=== PATIENT | male | born 1990 | race Caucasian/White ===

== ENCOUNTER 2019-04-07 16:38 | Emergency (ER) | payer BC ==
--- NOTE | 2019-04-07 17:01 | EDM.PDOC ---
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 He pulled over to rest and the symptoms did not seem to go away. He states he had similar symptoms to this when he had heat exhaustion in the past. 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 He reports that he has been working since around 6 AM today. He does report that he drank about 10 of the 16 ounce garibay today and he even added electrolytes to some of the garibay area he has been urinating normally. He has had no shortness of breath. He had no antecedent symptoms. In fact, he states he felt really good when he started work this morning and felt that he had had a good night's rest the night before. No nausea or vomiting. No cough. No nasal congestion. No abdominal pain. In fact, he has no pain. He rates his pain as a 0/10. There are no other associated signs or symptoms. There are no other modifying factors. Onset: Today (3:30 PM) Duration: Constant Location: Reports: Generalized Quality: Reports: Other (No pain just dizziness and malaise) Severity: Moderate Improves with: Reports: Rest Worsens with: Reports: Movement (Or activity) Context: Reports: Activity (As above) Associated Symptoms: Reports: Chest Pain, Other (Tingling in both arms and legs. ) Treatments SPUDDER: Reports: Other (see below) - Related Data Allergies Allergy/AdvReac Type Severity Reaction Status Date / Time No Known Allergies Allergy Verified 04/07/19 17:02 Home Meds: Home Meds PARoxetine [Paxil] 20 mg PO DAILY 04/07/19 [History] Past Medical History Psychiatric History: Reports: Anxiety - Past Surgical History Other Surgical History Comment: No previous surgeries. Social & Family History - Tobacco Use Smoking Status *Q: Current Every Day Smoker - Alcohol Use Alcohol Use History: No - Living Situation & Occupation Occupation: Employed (Works delivering bakery items.) ED ROS GENERAL - Review of Systems Review Of Systems: See Below Constitutional: Reports: Malaise HEENT: Reports: No Symptoms Respiratory: Reports: No Symptoms Cardiovascular: Reports: Chest Pain (As described above), Palpitations Endocrine: Reports: No Symptoms GI/Abdominal: Reports: No Symptoms : Reports: No Symptoms (Has been urinating normally today) Musculoskeletal: Reports: No Symptoms Skin: Reports: No Symptoms Neurological: Reports: Dizziness, Weakness ED EXAM, GENERAL - Physical Exam Exam: See Below Exam Limited By: No Limitations General Appearance: Alert, WD/WN, Mild Distress, Other (But seems in no real distress at this point.) Eye Exam: Bilateral Eye: EOMI, Normal Inspection, PERRL Ears: Normal External Exam Ear Exam: Bilateral Ear: Auricle Normal Nose: Normal Inspection, Normal Mucosa, No Blood Throat/Mouth: Normal Voice, No Airway Compromise, Other (Somewhat dry mucous membranes) Head: Atraumatic, Normocephalic Neck: Normal Inspection, Supple, Non-Tender, Full Range of Motion Respiratory/Chest: No Respiratory Distress, Lungs Clear, Normal Breath Sounds, No Accessory Muscle Use, Chest Non-Tender Cardiovascular: Normal Peripheral Pulses, Regular Rate, Rhythm, No JVD Peripheral Pulses: 2+: Radial (L), Radial (R), Dorsalis Pedis (L), Dorsalis Pedis (R) GI/Abdominal: Normal Bowel Sounds, Soft, Non-Tender, No Mass Back Exam: Normal Inspection Extremities: Normal Inspection, Normal Range of Motion, Non-Tender, Normal Capillary Refill, No Pedal Edema Neurological: Alert, Oriented, CN II-XII Intact, Normal Cognition, No Motor/ Sensory Deficits, Other (No drift. No dysmetria.) Skin Exam: Warm, Dry, Intact, Normal Color, No Rash EKG INTERPRETATION EKG Date: 04/07/19 Time: 17:05 Rhythm: NSR Rate (Beats/Min): 82 Marlette: LAD-Left Marlette Deviation (Borderline) P-Wave: Present QRS: Normal ST-T: Normal QT: Normal Comparison: NA - No Prior EKG Course - Vital Signs Last Recorded V/S: Last Vital Signs Temp 36.8 C 04/07/19 18:51 Pulse 82 04/07/19 18:51 Resp 17 04/07/19 18:51 BP 126/74 04/07/19 18:51 Pulse Ox 97 04/07/19 18:51 - Orders/Labs/Meds Orders: Active Orders 24 hr Category Date Time Status Sodium Chloride 0.9% [Saline Flush] Med 04/07/19 17:02 Active 10 ml FLUSH ASDIRECTED PRN Peripheral IV Insertion Adult [OM.PC] Routine Oth 04/07/19 17:02 Ordered EKG 12 Lead [EK] Routine Ther 04/07/19 17:02 Ordered Medication Orders Sodium Chloride (Saline Flush) 10 ml FLUSH ASDIRECTED PRN PRN Reason: Keep Vein Open Last Admin: 04/07/19 17:22 Dose: 10 ml Labs: Laboratory Tests 04/07/19 04/07/19 04/07/19 Range/Units 17:10 17:10 17:10 WBC 10.1 (4.5-12.0) X10-3/uL RBC 4.82 (4.30-5.75) x10(6)uL Hgb 15.3 (13.5-17.8) g/dL Hct 44.3 (30.0-51.3) % MCV 92.0 (80-96) fL MCH 31.8 (27.7-33.6) pg MCHC 34.5 (32.2-35.4) g/dL RDW 13.0 (11.5-15.5) % Plt Count 238 (125-369) X10(3)uL MPV 7.6 (7.4-10.4) fL Neut % (Auto) 68.7 (46-82) % Lymph % (Auto) 18.6 (13-37) % [place] % (Auto) 6.9 (4-12) % Eos % (Auto) 3 (1.0-5.0) % Baso % (Auto) 3 H (0-2) % Neut # (Auto) 6.9 (1.6-8.3) # Lymph # (Auto) 1.9 (0.6-5.0) # [place] # (Auto) 0.7 (0.0-1.3) # Eos # (Auto) 0.3 (0.0-0.8) # Baso # (Auto) 0.3 H (0.0-0.2) # Sodium 143 (135-145) mmol/L Potassium 3.7 (3.5-5.3) mmol/L Chloride 103 (100-110) mmol/L Carbon Dioxide 26 (21-32) mmol/L BUN 14 (7-18) mg/dL Creatinine 0.7 (0.70-1.30) mg/dL Est Cr Clr Drug Dosing TNP Estimated GFR (MDRD) > 60 (>60) BUN/Creatinine Ratio 20.0 (9-20) Glucose 91 (80-116) mg/dL Calcium 8.4 L (8.6-10.2) mg/dL Magnesium 1.8 (1.8-2.5) mg/dL Total Bilirubin 0.4 (0.1-1.3) mg/dL AST 17 (5-25) IU/L ALT 21 (12-36) U/L Alkaline Phosphatase 100 (56-112) IU/L Troponin I < 0.017 L (<0.017-0.056) ng/mL Total Protein 7.2 (6.0-8.0) g/dL Albumin 4.0 (3.5-5.2) g/dL Globulin 3.2 g/dL Albumin/Globulin Ratio 1.3 Urine Color (YELLOW) Urine Appearance (CLEAR) Urine pH (5.0-6.5) Ur Specific [place] (1.010-1.025) Urine Protein (NEGATIVE) mg/dL Urine Glucose (UA) (NORMAL) mg/dL Urine Ketones (NEGATIVE) mg/dL Urine Occult Blood (NEGATIVE) Urine Nitrite (NEGATIVE) Urine Bilirubin (NEGATIVE) Urine Urobilinogen (NEGATIVE) mg/dL Ur Leukocyte Esterase (NEGATIVE) Urine RBC (0-5) Urine WBC (0-5) Ur Squamous Epith Cells (NS,R,O) Urine Bacteria (NS) 04/07/19 Range/Units 18:00 WBC (4.5-12.0) X10-3/uL RBC (4.30-5.75) x10(6)uL Hgb (13.5-17.8) g/dL Hct (30.0-51.3) % MCV (80-96) fL MCH (27.7-33.6) pg MCHC (32.2-35.4) g/dL RDW (11.5-15.5) % Plt Count (125-369) X10(3)uL MPV (7.4-10.4) fL Neut % (Auto) (46-82) % Lymph % (Auto) (13-37) % [place] % (Auto) (4-12) % Eos % (Auto) (1.0-5.0) % Baso % (Auto) (0-2) % Neut # (Auto) (1.6-8.3) # Lymph # (Auto) (0.6-5.0) # [place] # (Auto) (0.0-1.3) # Eos # (Auto) (0.0-0.8) # Baso # (Auto) (0.0-0.2) # Sodium (135-145) mmol/L Potassium (3.5-5.3) mmol/L Chloride (100-110) mmol/L Carbon Dioxide (21-32) mmol/L BUN (7-18) mg/dL Creatinine (0.70-1.30) mg/dL Est Cr Clr Drug Dosing Estimated GFR (MDRD) (>60) BUN/Creatinine Ratio (9-20) Glucose (80-116) mg/dL Calcium (8.6-10.2) mg/dL Magnesium (1.8-2.5) mg/dL Total Bilirubin (0.1-1.3) mg/dL AST (5-25) IU/L ALT (12-36) U/L Alkaline Phosphatase (56-112) IU/L Troponin I (<0.017-0.056) ng/mL Total Protein (6.0-8.0) g/dL Albumin (3.5-5.2) g/dL Globulin g/dL Albumin/Globulin Ratio Urine Color Yellow (YELLOW) Urine Appearance Clear (CLEAR) Urine pH 8.0 H (5.0-6.5) Ur Specific [place] 1.010 (1.010-1.025) Urine Protein Negative (NEGATIVE) mg/dL Urine Glucose (UA) Normal (NORMAL) mg/dL Urine Ketones Negative (NEGATIVE) mg/dL Urine Occult Blood Negative (NEGATIVE) Urine Nitrite Negative (NEGATIVE) Urine Bilirubin Negative (NEGATIVE) Urine Urobilinogen Normal (NEGATIVE) mg/dL Ur Leukocyte Esterase Negative (NEGATIVE) Urine RBC Not seen (0-5) Urine WBC Not seen (0-5) Ur Squamous Epith Cells Not seen (NS,R,O) Urine Bacteria Rare H (NS) Meds: Medications Generic Name Dose Route Start Last Admin Trade Name Manny PRN Reason Stop Dose Admin Sodium Chloride 10 ml 04/07/19 17:02 04/07/19 17:22 Saline Flush FLUSH 10 ml ASDIRECTED PRN Administration Keep Vein Open Discontinued Medications Generic Name Dose Route Start Last Admin Trade Name Frelily PRN Reason Stop Dose Admin Sodium Chloride 1,000 mls @ 999 mls/hr 04/07/19 17:03 04/07/19 17:23 Normal Saline IV 04/07/19 18:03 999 mls/hr .BOLUS ONE Administration - Re-Assessments/Exams Free Text/Narrative Re-Assessment/Exam: 04/07/19 18:50: Patient has received a full liter of normal saline. His laboratory tests including his urine test are reassuringly normal. His EKG was normal. He feels much improved after the IV fluids all of his symptoms of tingling and chest discomfort are resolved. I suspect he had mild heat exhaustion and I am recommending that he have off from work tomorrow, he increase his fluid intake and rest and that he avoids hot environments. Departure - Departure Time of Disposition: 19:10 Disposition: Home, Self-Care 01 Condition: Good (Improved) Clinical Impression: Dehydration, mild Heat exhaustion Qualifiers: Encounter type: initial encounter Qualified Code(s): T67.5XXA - Heat exhaustion , unspecified, initial encounter - Discharge Information Instructions: Heat Exhaustion Information, Dehydration, Adult, [id number] Referrals: PCP,Not In Area [Primary Care Provider] - Forms: ED Return to Work/School Form Additional Instructions: Your blood tests and urine tests were reassuringly normal. Your EKG was normal. Your vital signs were reassuring as well. You do appear to have mild heat exhaustion and mild dehydration. We have corrected this with the IV fluids. You need to rest. No work until 04/09/2019. You need to drink plenty of fluids. You should avoid hot environments for the next 24 hours. Back to the emergency department for worse/recurrent dizziness, unrelenting vomiting, abdominal pain or any other concerning sign or symptom. - My Orders Last 24 Hours: My Active Orders 04/07/19 17:02 Sodium Chloride 0.9% [Saline Flush] 10 ml FLUSH ASDIRECTED PRN Peripheral IV Insertion Adult [OM.PC] Routine EKG 12 Lead [EK] Routine - Assessment/Plan Last 24 Hours: My Active Orders 04/07/19 17:02 Sodium Chloride 0.9% [Saline Flush] 10 ml FLUSH ASDIRECTED PRN Peripheral IV Insertion Adult [OM.PC] Routine EKG 12 Lead [EK] Routine
[2019-04-07] MEDS ORDERED: Sodium Chloride 0.9% 10 ML Syringe FLUSH PRN (17:02)
[2019-04-07] MEDS ORDERED: Sodium Chloride 0.9% 1,000 ML IV ONE (17:03)
== END 2019-04-07 19:18 | disposition home or self-care (01) ==
LOC: FB.ED 16:38
DX: T67.5XXA Heat exhaustion, unspecified, initial encounter (principal); E86.0 Dehydration; F41.9 Anxiety disorder, unspecified; F17.200 Nicotine dependence, unspecified, uncomplicated; Z79.899 Other long term (current) drug therapy
CPT/HCPCS: 36415; 80053; 81001; 83735; 84484; 85025; 93005; 96360; 99284; J7030